=== PATIENT | female | born 2000 | race Caucasian/White ===

== ENCOUNTER 2022-03-21 09:52 | Inpatient (IN) ==
[~2022-03-21 09:52] MED LIST: EPHEDrine sulfate 50 MG/10 ML VIAL IVP PRN; Epidural Premix (fent/bupiv) 110 ML EP SCH; Famotidine 20 MG/2 ML VIAL IVP PRN; Metoclopramide 10 MG/2 ML VIAL IVP PRN; Naloxone 0.4 MG/ML INJ IVP PRN
[2022-03-21] MEDS ORDERED: Ringers Solution, Lactated 1,000 ML IVC SCH (10:00)
[2022-03-21 10:08] LABS: Basophils % 0.2 %; Eosinophils # 0.1 K/mcL (0.0-0.6); Eosinophils % 0.6 %; Hematocrit 32.6 % (35.3-44.9); Hemoglobin 10.9 g/dL (11.5-15.4); Immature Granulocytes % 0.8 % (0-4); Lymphocytes # 1.9 K/mcL (0.6-4.6); Lymphocytes % 16.3 %; Mean Corpuscular HGB Conc 33.4 g/dL (31.6-35.5); Mean Corpuscular Hemoglobin 30.1 pg (28.0-33.3); Mean Corpuscular Volume 90.1 fL (83.0-100.0); Mean Platelet Volume 11.1 fL (9.4-12.4); Monocytes # 0.9 K/mcL (0.0-1.3); Monocytes % 7.5 %; Neutrophils # 8.6 K/mcL (1.6-8.9); Platelet Count 275 K/mcL (140-400); Red Blood Count 3.62 M/mcL (3.82-4.97); Red Cell Distribution Width 12.1 % (11.5-14.5); Segmented Neutrophils % 74.6 %; White Blood Count 11.5 K/mcL (4.3-11.1)
[2022-03-21 10:17] LABS: Amphetamine Screen,Urine Negative ng/mL (Cutoff=1000); Barbiturate Screen,Urine Negative ng/mL (Cutoff=200); Benzodiazepines Screen,Urine Negative ng/mL (Cutoff=200); Cannabinoid Screen,Urine Negative ng/mL (Cutoff = 50); Cocaine Screen,Urine Negative ng/mL (Cutoff= 300); Opiate Screen,Urine Negative ng/mL (Cutoff=300); Phencyclidine Screen,Urine Negative ng/mL (Cutoff=25)
[2022-03-22] MEDS ORDERED: Oxytocin 30 UNIT/503 ML BAG IVC SCH ×2 (01:30→13:05)
[2022-03-22] MEDS ORDERED: Benzocaine/Menthol 56 GM AEROSOL SPRAY TP PRN (13:05)
[2022-03-22] MEDS ORDERED: Ondansetron ODT 4 MG TAB.RAPDIS SL PRN (13:05)
[2022-03-22] MEDS ORDERED: Rho Immune Globulin 1,500 UNIT SYRINGE IM PRN (13:05)
[2022-03-22] MEDS ORDERED: Lanolin 7 G OINT...G. TP PRN (13:05)
[2022-03-22] MEDS: Ibuprofen 600 MG TABLET PO SCH ×2 (14:49→19:37)
[2022-03-22] MEDS: Acetaminophen 325 MG TABLET PO SCH (19:38)
[2022-03-23] MEDS: Acetaminophen 325 MG TABLET PO SCH ×2 (04:30→10:30)
[2022-03-23] MEDS: Ibuprofen 600 MG TABLET PO SCH ×2 (04:30→10:30)
[2022-03-23 04:38] LABS: Basophils % 0.2 %; Eosinophils # 0.1 K/mcL (0.0-0.6); Eosinophils % 0.4 %; Hematocrit 26.1 % (35.3-44.9); Immature Granulocytes % 0.8 % (0-4); Lymphocytes # 2.5 K/mcL (0.6-4.6); Lymphocytes % 16.1 %; Mean Corpuscular HGB Conc 33.7 g/dL (31.6-35.5); Mean Corpuscular Hemoglobin 30.6 pg (28.0-33.3); Mean Corpuscular Volume 90.6 fL (83.0-100.0); Monocytes # 1.3 K/mcL (0.0-1.3); Neutrophils # 11.7 K/mcL (1.6-8.9); Platelet Count 211 K/mcL (140-400); Red Blood Count 2.88 M/mcL (3.82-4.97); Red Cell Distribution Width 12.5 % (11.5-14.5); Segmented Neutrophils % 74.5 %; White Blood Count 15.7 K/mcL (4.3-11.1)
[2022-03-23 04:49] LABS: Hemoglobin 8.8 g/dL (11.5-15.4)
[2022-03-23 07:13] VITALS: BP 112/74; PULSE 84; TEMP 97.8; O2SAT 100
[2022-03-23] MEDS ORDERED: Prenatal Vit/FA 1 EACH TABLET PO SCH (09:00)
== END 2022-03-23 13:13 | disposition home or self-care (01) | DRG 806 ==
LOC: 1NENULAB → 1NENUOBS 03-22 12:38
PROVIDERS: ADMIT Obstetrics & Gynecology; ATTEND Obstetrics & Gynecology